=== PATIENT | male | born 1965 | race Caucasian/White ===

== ENCOUNTER 2023-01-11 19:18 | Emergency (ER) | payer SELFPAY ==
[~2023-01-11] VITALS: Ht 177.8 cm; Wt 90.7 kg
[2023-01-11 19:23] VITALS: BP 113/78
--- NOTE | 2023-01-11 19:24 | NUR ---
PT OFFLOADED TO [facility]
--- NOTE | 2023-01-11 20:10 | NUR ---
Patient sitting in chair, A/Ox4, chest rise and fall symmetrical, no s/s of distress.
--- NOTE | 2023-01-11 21:00 | NUR ---
Patient sitting in chair, A/Ox4, chest rise and fall symmetrical, no s/s of distress.
[2023-01-11] MEDS ORDERED: ONDANSETRON 4 MG ODT PO ONE (21:05)
[2023-01-11] MEDS ORDERED: KETOROLAC 60 MG/2 ML VIAL IM ONE (21:05)
[2023-01-11] MEDS ORDERED: ONDA8TAB87 PO (21:17)
[2023-01-11] MEDS ORDERED: IBUP-2213 PO (21:17)
[2023-01-11 21:27] VITALS: BP 110/85
--- NOTE | 2023-01-11 21:30 | NUR ---
Patient given written and verbal discharge instructions and verbalizes understanding. Given copies of tests performed during visit. Patient is awake, alert and oriented. Ambulatory with steady gait. Refuses offer of alf placement. Given list of available shelters in surrounding areas.
== END 2023-01-11 21:28 | disposition home or self-care (01) ==
LOC: MED 19:18
DX: F15.10 Other stimulant abuse, uncomplicated (principal); R11.2 Nausea with vomiting, unspecified; R07.9 Chest pain, unspecified
CPT/HCPCS: 96372; 99283; J1885; Q0162

== ENCOUNTER 2023-01-11 21:44 | Emergency (ER) | payer SELFPAY ==
[~2023-01-11] VITALS: Ht 172.7 cm; Wt 81.6 kg
[~2023-01-11 21:44] MED LIST: IBUP-2213 PO; ONDA8TAB87 PO
[2023-01-11 22:48] VITALS: BP 147/78
--- NOTE | 2023-01-11 22:52 | NUR ---
TO LOBBY FOLLOWING TRIAGE
--- NOTE | 2023-01-12 02:02 | NUR ---
PT TO [facility]
--- NOTE | 2023-01-12 02:07 | NUR ---
PT MOVED TO BED 2
[2023-01-12] MEDS ORDERED: LORazepam 1 MG TAB PO ONE (02:10)
[2023-01-12] MEDS ORDERED: OLANZapine 5 MG ODT SL ONE (02:10)
[2023-01-12] MEDS ORDERED: ONDANSETRON 4 MG ODT PO ONE (02:30)
--- NOTE | 2023-01-12 02:50 | NUR ---
Radha chun in [facility] - 01/12/23 at 0251 by [email or web address] Urine collected sent to lab
--- NOTE | 2023-01-12 03:00 | NUR ---
pt tolerated food well
[2023-01-12 03:13] LABS: BARBITURATE, URINE NEGATIVE ng/ml (NEG <=200); BENZODIAZEPINE, URINE NEGATIVE ng/mL (NEG <=200); CANNABINOID, URINE NEGATIVE ng/mL (NEG <=50); COCAINE, URINE NEGATIVE ng/mL (NEG <=300); OPIATE, URINE NEGATIVE ng/mL (NEG <=2000); PHENCYCLIDINE SCREEN,URINE NEGATIVE ng/mL (NEG <=25)
[2023-01-12] MEDS ORDERED: OLANZapine 5 MG ODT ONE (03:13)
[2023-01-12] MEDS ORDERED: LORazepam 1 MG TAB ONE (03:14)
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
--- NOTE | 2023-01-12 06:10 | NUR ---
Patient discharged with v/s stable. Written and verbal after care instructions given and explained. Patient verbalized understanding. Ambulatory with steady gait. All questions addressed prior to discharge. Advised to follow up with PMD.
--- NOTE | 2023-01-12 06:26 | NUR ---
The patient's care was reviewed and supervised by Alison Bo RN, RN.
== END 2023-01-12 06:10 | disposition home or self-care (01) ==
LOC: MED 21:44
DX: F22 Delusional disorders (principal); F15.10 Other stimulant abuse, uncomplicated
CPT/HCPCS: 80305; 99283; Q0162